=== PATIENT | male | born 1975 | race Caucasian/White ===

== ENCOUNTER 2018-04-01 17:20 | Emergency (ER) | payer MEDICAID, OTHER ==
[2018-04-01] MEDS: DEXAMETHASONE 10 MG/ML 1 ML INJ IM (20:04)
[2018-04-01] MEDS: KETOROLAC 30 MG INJ IM (20:04)
[2018-04-01] MEDS: METHOCARBAMOL 750 MG TAB PO (20:09)
== END 2018-04-01 21:39 | disposition home or self-care (01) ==
LOC: FTE 17:20
DX: M51.9 Unspecified thoracic, thoracolumbar and lumbosacral intervertebral disc disorder (principal); F17.210 Nicotine dependence, cigarettes, uncomplicated
CPT/HCPCS: 72072; 72100; 96372; 99284-25